=== PATIENT | female | born 1950 | race Caucasian/White ===

== ENCOUNTER 2021-03-11 09:29 | Emergency (ER) | payer MEDICARE, BC, OTHER ==
[2021-03-11] MEDS ORDERED: Promethazine HCl 25 MG/ML VIAL ONE (10:50)
[2021-03-11 11:08] LABS: #Basophils 0.1 10x3/uL (0.0-0.2); #Eosinphils 0.1 10x3/uL (0.0-0.5); #Monocytes 0.6 10x3/uL (0.0-1.1); #Neutrophils 4.7 10x3/uL (1.5-8.4); %Basophils 0.9 % (0.0-2.0); %Eosinophils 1.7 % (0.0-6.0); %Lymphocytes 19.7 % (18.0-47.0); %Monocytes 8.8 % (0.0-10.0); %Neutrophils 68.3 % (40.0-75.0); Hemoglobin 14.6 g/dL (12.0-15.5); Mean Corpuscular HGB CONC 31.4 g/dL (32.0-36.0); Mean Corpuscular Hemoglobin 29.7 pg (27.0-33.0); Mean Corpuscular Volume 94.7 fl (81.6-98.3); Mean Platelet Volume 8.9 fl (7.4-10.4); Platelet Count 292 10x3/uL (150-450); Red Blood Cell (RBC) Count 4.91 10x6/uL (3.90-5.03); White Blood Cell (WBC) Count 6.9 10x3/uL (3.5-10.5)
[2021-03-11 11:30] LABS: ALT (SGPT) 20 U/L (8-55); AST (SGOT) 19 U/L (5-34); Albumin 3.6 g/dL (3.4-4.8); Alkaline Phosphatase 49 U/L (40-110); Anion Gap 13 mmol/L (10-20); BUN (Urea Nitrogen) 24 mg/dL (9.8-20.1); Bilirubin, Total 0.4 mg/dL (0.2-1.2); CK (CPK) 71 U/L (29-168); Calc. Creatinine Clearance 0 mL/min (70-130); Calcium 8.9 mg/dL (7.8-10.44); Carbon Dioxide 26 mmol/L (23-31); Chloride 103 mmol/L (98-107); Globulin 2.8 g/dL (2.4-3.5); Glucose 88 mg/dL (80-115); Lipase 21 U/L (8-78); Magnesium 2.1 mg/dL (1.6-2.6); Potassium 4.3 mmol/L (3.5-5.1); Protein, Total 6.4 g/dL (5.8-8.1); Sodium 138 mmol/L (136-145)
== END 2021-03-11 14:49 | disposition home or self-care (01) ==
LOC: CSHERS 09:29
DX: I95.1 Orthostatic hypotension (principal); N17.9 Acute kidney failure, unspecified; E03.9 Hypothyroidism, unspecified; E78.5 Hyperlipidemia, unspecified; E78.00 Pure hypercholesterolemia, unspecified; I10 Essential (primary) hypertension; Z87.891 Personal history of nicotine dependence
CPT/HCPCS: 36415; 71045; 80053; 82550; 83690; 83735; 84443; 85025; 93005; 96365; J2550

== ENCOUNTER 2021-12-25 10:41 | Emergency (ER) | payer MEDICARE, BC, OTHER ==
[2021-12-25 11:48] LABS: #Basophils 0.1 10x3/uL (0.0-0.2); #Eosinphils 0.2 10x3/uL (0.0-0.5); #Monocytes 0.8 10x3/uL (0.0-1.1); #Neutrophils 3.9 10x3/uL (1.5-8.4); %Basophils 0.8 % (0.0-2.0); %Eosinophils 2.9 % (0.0-6.0); %Lymphocytes 26.6 % (18.0-47.0); %Monocytes 11.3 % (0.0-10.0); %Neutrophils 57.9 % (40.0-75.0); Hemoglobin 12.5 g/dL (12.0-15.5); Mean Corpuscular HGB CONC 32.8 g/dL (32.0-36.0); Mean Corpuscular Hemoglobin 29.9 pg (27.0-33.0); Mean Corpuscular Volume 91.1 fl (81.6-98.3); Mean Platelet Volume 9.1 fl (7.4-10.4); Platelet Count 280 10x3/uL (150-450); RBC Distribution Width 13.3 % (11.5-14.5); Red Blood Cell (RBC) Count 4.18 10x6/uL (3.90-5.03); White Blood Cell (WBC) Count 6.7 10x3/uL (3.5-10.5)
[2021-12-25 12:00] LABS: ALT (SGPT) 32 U/L (8-55); AST (SGOT) 19 U/L (5-34); Albumin 3.4 g/dL (3.4-4.8); Alkaline Phosphatase 36 U/L (40-110); Anion Gap 12 mmol/L (10-20); BUN (Urea Nitrogen) 29 mg/dL (9.8-20.1); Bilirubin, Total 0.3 mg/dL (0.2-1.2); Calc. Creatinine Clearance 0 mL/min (70-130); Calcium 9.2 mg/dL (7.8-10.44); Carbon Dioxide 29 mmol/L (23-31); Chloride 106 mmol/L (98-107); Estimated GFR 49; Globulin 2.1 g/dL (2.4-3.5); Glucose 85 mg/dL (80-115); Potassium 4.5 mmol/L (3.5-5.1); Protein, Total 5.5 g/dL (5.8-8.1); Sodium 142 mmol/L (136-145)
[2021-12-25 12:23] LABS: Bilirubin Neg (Negative); Blood, Urine Negative (Negative); Clarity Clear (Clear); Glucose, Urine (Dipstick) Normal (Negative); Ketone, Urine 5 mg/dL (Negative); Leukocyte Negative (Negative); Nitrite Negative (Negative); Protein, Urine (Dipstick) 15 mg/dl (Neg-Trace); Specific Gravity, Urine 1.015 (1.002-1.036); Urobilinogen Normal mg/dL (Less than 2); pH, Urine 6.5 (5.0-9.0)
[2021-12-25 12:34] LABS: CK (CPK) 109 U/L (29-168); Lipase 18 U/L (8-78)
== END 2021-12-25 13:17 | disposition home or self-care (01) ==
LOC: CSHERS 10:41
DX: E86.0 Dehydration (principal); E03.9 Hypothyroidism, unspecified; E78.00 Pure hypercholesterolemia, unspecified; I10 Essential (primary) hypertension; Z87.891 Personal history of nicotine dependence; Z20.822 Contact with and (suspected) exposure to COVID-19
CPT/HCPCS: 71045; 80053; 81003; 82550; 83690; 83880; 84484; 85025; 93005; 94760; 96360; 99285; U0003; U0005

== ENCOUNTER 2021-12-30 18:03 | Emergency (ER) | payer MEDICARE, BC, OTHER | END 2021-12-30 20:20 | disposition home or self-care (01) | LOC: CSHERS 18:03 | DX: L03.115 Cellulitis of right lower limb (principal); I80.3 Phlebitis and thrombophlebitis of lower extremities, unspecified; E03.9 Hypothyroidism, unspecified; E78.00 Pure hypercholesterolemia, unspecified; I10 Essential (primary) hypertension; Z87.891 Personal history of nicotine dependence | CPT/HCPCS: 36415; 85379 ==

== ENCOUNTER 2022-01-06 14:58 | Inpatient (IN) | payer MEDICARE, BC, OTHER ==
[2022-01-06 17:05] LABS: #Basophils 0.1 10x3/uL (0.0-0.2); #Eosinphils 0.2 10x3/uL (0.0-0.5); #Neutrophils 4.9 10x3/uL (1.5-8.4); %Basophils 0.8 % (0.0-2.0); %Eosinophils 2.7 % (0.0-6.0); %Lymphocytes 25.7 % (18.0-47.0); %Neutrophils 58.4 % (40.0-75.0); Hemoglobin 12.6 g/dL (12.0-15.5); Mean Corpuscular HGB CONC 32.2 g/dL (32.0-36.0); Mean Corpuscular Hemoglobin 29.6 pg (27.0-33.0); Mean Platelet Volume 9.5 fl (7.4-10.4); Platelet Count 273 10x3/uL (150-450); RBC Distribution Width 13.3 % (11.5-14.5); Red Blood Cell (RBC) Count 4.25 10x6/uL (3.90-5.03); White Blood Cell (WBC) Count 8.4 10x3/uL (3.5-10.5)
[2022-01-06 17:19] LABS: ALT (SGPT) 27 U/L (8-55); AST (SGOT) 23 U/L (5-34); Albumin 3.6 g/dL (3.4-4.8); Alkaline Phosphatase 41 U/L (40-110); Anion Gap 11 mmol/L (10-20); BUN (Urea Nitrogen) 18 mg/dL (9.8-20.1); Bilirubin, Total 0.3 mg/dL (0.2-1.2); Calc. Creatinine Clearance 0 mL/min (70-130); Calcium 9.2 mg/dL (7.8-10.44); Carbon Dioxide 28 mmol/L (23-31); Chloride 103 mmol/L (98-107); Estimated GFR 58; Globulin 2.7 g/dL (2.4-3.5); Glucose 77 mg/dL (80-115); Potassium 4.8 mmol/L (3.5-5.1); Protein, Total 6.3 g/dL (5.8-8.1); Sodium 137 mmol/L (136-145)
[2022-01-06] MEDS ORDERED: Cefepime 2 GM VIAL ONE (17:40)
[2022-01-06] MEDS ORDERED: Acetaminophen 500 MG TAB ONE (17:53)
[2022-01-06] MEDS ORDERED: Ondansetron ODT 4 MG TAB PO PRN (18:16)
[2022-01-06] MEDS ORDERED: Acetaminophen 325 MG TAB PO PRN (18:16)
[2022-01-06] MEDS ORDERED: Ondansetron PF 4 MG/2 ML Vial IVP PRN (18:16)
[2022-01-06] MEDS ORDERED: Famotidine 20 MG TAB PO SCH (21:00)
[2022-01-06] MEDS ORDERED: Famotidine 20 MG TAB ONE (21:07)
[2022-01-06] MEDS ORDERED: CEFAZOLIN 2 GM VIAL ONE (22:07)
[2022-01-06] MEDS: CEFAZOLIN 2 GM in Sodium Chloride 0.9% 100 ML IVPB SCH (22:10)
[2022-01-06] MEDS: traMADol HCl 50 MG TAB PO PRN (22:14)
[2022-01-06] MEDS ORDERED: traMADol HCl 50 MG TAB ONE (22:17)
[2022-01-07 03:37] LABS: #Eosinphils 0.2 10x3/uL (0.0-0.5); #Monocytes 0.8 10x3/uL (0.0-1.1); #Neutrophils 2.4 10x3/uL (1.5-8.4); %Basophils 0.8 % (0.0-2.0); %Eosinophils 3.2 % (0.0-6.0); %Lymphocytes 35.7 % (18.0-47.0); %Monocytes 14.4 % (0.0-10.0); %Neutrophils 45.5 % (40.0-75.0); Hemoglobin 10.9 g/dL (12.0-15.5); Mean Corpuscular HGB CONC 32.6 g/dL (32.0-36.0); Mean Corpuscular Hemoglobin 29.7 pg (27.0-33.0); Mean Platelet Volume 9.2 fl (7.4-10.4); Platelet Count 223 10x3/uL (150-450); RBC Distribution Width 13.2 % (11.5-14.5); Red Blood Cell (RBC) Count 3.67 10x6/uL (3.90-5.03); White Blood Cell (WBC) Count 5.3 10x3/uL (3.5-10.5)
[2022-01-07 03:53] LABS: Anion Gap 12 mmol/L (10-20); BUN (Urea Nitrogen) 18 mg/dL (9.8-20.1); Calc. Creatinine Clearance 0 mL/min (70-130); Calcium 8.1 mg/dL (7.8-10.44); Carbon Dioxide 24 mmol/L (23-31); Chloride 108 mmol/L (98-107); Estimated GFR 75; Glucose 67 mg/dL (80-115); Potassium 4.3 mmol/L (3.5-5.1); Sodium 140 mmol/L (136-145)
[2022-01-07] MEDS ORDERED: traMADol HCl 50 MG TAB ONE (05:43)
[2022-01-07] MEDS ORDERED: Ondansetron PF 4 MG/2 ML Vial ONE (05:43)
[2022-01-07] MEDS ORDERED: CEFAZOLIN 2 GM VIAL ONE (05:44)
[2022-01-07] MEDS: traMADol HCl 50 MG TAB PO PRN ×2 (05:50→21:47)
[2022-01-07] MEDS: CEFAZOLIN 2 GM in Sodium Chloride 0.9% 100 ML IVPB SCH ×3 (05:52→21:37)
[2022-01-07] MEDS ORDERED: Morphine 2 MG/ML VIAL ONE (06:45)
[2022-01-07 16:25] VITALS: BMI 26.9
[2022-01-07] MEDS ORDERED: Albuterol Sulfate 2.5 mg/3 ml Neb NEB PRN (17:13)
[2022-01-07] MEDS: Hydroxychloroquine Sulfate 200 MG TAB PO SCH (21:37)
[2022-01-08 05:27] LABS: Anion Gap 11 mmol/L (10-20); BUN (Urea Nitrogen) 17 mg/dL (9.8-20.1); Calc. Creatinine Clearance 74 mL/min (70-130); Calcium 8.2 mg/dL (7.8-10.44); Carbon Dioxide 28 mmol/L (23-31); Chloride 107 mmol/L (98-107); Estimated GFR 66; Glucose 86 mg/dL (80-115); Potassium 4.9 mmol/L (3.5-5.1); Sodium 141 mmol/L (136-145)
[2022-01-08 05:28] LABS: #Eosinphils 0.2 10x3/uL (0.0-0.5); #Monocytes 0.8 10x3/uL (0.0-1.1); #Neutrophils 3.1 10x3/uL (1.5-8.4); %Basophils 0.7 % (0.0-2.0); %Eosinophils 3.6 % (0.0-6.0); %Lymphocytes 31.4 % (18.0-47.0); %Monocytes 12.8 % (0.0-10.0); %Neutrophils 51.2 % (40.0-75.0); Hemoglobin 11.2 g/dL (12.0-15.5); Mean Corpuscular HGB CONC 32.8 g/dL (32.0-36.0); Mean Corpuscular Hemoglobin 29.8 pg (27.0-33.0); Mean Corpuscular Volume 90.7 fl (81.6-98.3); Mean Platelet Volume 9.1 fl (7.4-10.4); Platelet Count 240 10x3/uL (150-450); RBC Distribution Width 13.1 % (11.5-14.5); Red Blood Cell (RBC) Count 3.76 10x6/uL (3.90-5.03); White Blood Cell (WBC) Count 6.1 10x3/uL (3.5-10.5)
[2022-01-08] MEDS: CEFAZOLIN 2 GM in Sodium Chloride 0.9% 100 ML IVPB SCH (06:19)
[2022-01-08] MEDS ORDERED: Levothyroxine Sodium 125 MCG TAB PO SCH (07:30)
[2022-01-08] MEDS ORDERED: Estrogen,Ester/Me-Testosterone 0.625 mg/1.25 mg Tablet PO SCH (09:00)
[2022-01-08] MEDS ORDERED: Bupropion 150 MG XL TAB PO SCH (09:00)
[2022-01-08] MEDS: Hydroxychloroquine Sulfate 200 MG TAB PO SCH (09:08)
[2022-01-08] MEDS ORDERED: Mometasone/Formoterol 200/5 60 PUFF INH SCH ×2 (09:30→18:30)
[2022-01-08 09:54] VITALS: BP 107/55; TEMP 97.2
== END 2022-01-08 10:30 | disposition home or self-care (01) | DRG 294 ==
LOC: CSHERS 14:58 → SUATTDRO 14:58 → INTOOBSV 20:38 → CSHERHOLD 20:38 → CSHTELE 01-07 12:40 → OBSVTOIN 01-07 18:12
PROVIDERS: ADMIT Student in an Organized Health Care Education/Training Program; ATTEND Family Medicine
DX: I80.3 Phlebitis and thrombophlebitis of lower extremities, unspecified (principal); L03.115 Cellulitis of right lower limb; E03.9 Hypothyroidism, unspecified; I10 Essential (primary) hypertension; M06.9 Rheumatoid arthritis, unspecified; K21.9 Gastro-esophageal reflux disease without esophagitis; M54.9 Dorsalgia, unspecified; G89.29 Other chronic pain; E78.00 Pure hypercholesterolemia, unspecified; F32.A Depression, unspecified; Z98.890 Other specified postprocedural states; Z88.2 Allergy status to sulfonamides; Z88.8 Allergy status to other drugs, medicaments and biological substances; Z79.899 Other long term (current) drug therapy; Z79.51 Long term (current) use of inhaled steroids; Z79.890 Hormone replacement therapy; Z90.710 Acquired absence of both cervix and uterus; Z90.79 Acquired absence of other genital organ(s)
CPT/HCPCS: 36415; 80048; 80053; 83605; 85025; 87040; 96365; 96366; 96367; 96375; G0378; J0690; J0692; J2270; J2405; J3370; J3490

== ENCOUNTER 2023-07-14 23:45 | Emergency (ER) | payer MEDICARE, OTHER ==
[2023-07-15] MEDS ORDERED: Ketorolac Tromethamine 30 MG (1 mL) VIAL ONE (00:22)
[2023-07-15] MEDS ORDERED: Ondansetron ODT 4 MG TAB ONE (00:22)
[2023-07-15] MEDS ORDERED: Orphenadrine Citrate 60 MG/2 ML VIAL ONE (00:22)
[2023-07-15] MEDS ORDERED: Dexamethasone 4 MG TAB ONE (00:22)
[2023-07-15 01:44] LABS: Bilirubin Neg (Negative); Blood, Urine Negative (Negative); Clarity Slightly Cloudy (Clear); Glucose, Urine (Dipstick) Normal (Negative); Ketone, Urine 15 mg/dL (Negative); Leukocyte Negative (Negative); Nitrite Negative (Negative); Protein, Urine (Dipstick) 15 mg/dl (Neg-Trace); Specific Gravity, Urine 1.025 (1.005-1.030); Urobilinogen Normal mg/dL (Less than 2)
[2023-07-15 01:53] LABS: Bacteria/HPF 1+ HPF (None Seen); CAUTI Indications for Culture Pelvic or flank pain; RBC/HPF 0-3 HPF (0-3); WBC/HPF 0-3 HPF (0-3); Yeast-Budding Rare HPF (None Seen)
[2023-07-15 01:55] LABS: Urine Culture Reflex No No
== END 2023-07-15 02:29 | disposition home or self-care (01) ==
LOC: CSHERS 23:45
DX: M53.3 Sacrococcygeal disorders, not elsewhere classified (principal)
CPT/HCPCS: 81001; 96372; 99283; J1885; J2360; J8540; Q0162

== ENCOUNTER 2023-10-28 15:04 | Emergency (ER) | payer MEDICARE, OTHER ==
[~2023-10-28 15:04] MED LIST: Iopamidol 300 61% 100 ML VIAL FS ONE
[2023-10-28 16:13] LABS: #Basophils 0.03 10x3/uL (0.0-0.2); #Monocytes 0.35 10x3/uL (0.0-1.1); #Neutrophils 4.65 10x3/uL (1.5-8.4); %Basophils 0.5 % (0.0-2.0); %Eosinophils 1.6 % (0.0-6.0); %Lymphocytes 15.8 % (18.0-47.0); %Monocytes 5.7 % (0.0-10.0); %Neutrophils 76.1 % (40.0-75.0); Hemoglobin 11.2 g/dL (12.0-15.5); Mean Corpuscular Hemoglobin 26.5 pg (27.0-33.0); Mean Corpuscular Volume 82.9 fL (81.6-98.3); Mean Platelet Volume 9.3 fL (7.4-10.4); Platelet Count 373 10x3/uL (150-450); RBC Distribution Width 14.9 % (11.5-14.5); Red Blood Cell (RBC) Count 4.22 10x6/uL (3.90-5.03); White Blood Cell (WBC) Count 6.1 10x3/uL (3.5-10.5)
[2023-10-28 16:34] LABS: ALT (SGPT) 15 U/L (8-55); AST (SGOT) 14 U/L (5-34); Albumin 3.3 g/dL (3.4-4.8); Alkaline Phosphatase 51 U/L (40-110); Anion Gap 11 mmol/L (10-20); BUN (Urea Nitrogen) 19 mg/dL (9.8-20.1); Bilirubin, Total 0.2 mg/dL (0.2-1.2); Calc. Creatinine Clearance 0 mL/min (70-130); Calcium 9.1 mg/dL (7.8-10.44); Carbon Dioxide 28 mmol/L (23-31); Chloride 104 mmol/L (98-107); Estimated GFR 56; Globulin 2.5 g/dL (2.4-3.5); Glucose 105 mg/dL (83-110); Lipase 13 U/L (8-78); Potassium 4.7 mmol/L (3.5-5.1); Protein, Total 5.8 g/dL (5.8-8.1); Sodium 138 mmol/L (136-145)
[2023-10-28 16:40] LABS: Troponin I Less than 0.010 ng/mL (< 0.028)
[2023-10-28] MEDS ORDERED: Ondansetron PF 4 MG/2 ML Vial ONE (18:12)
[2023-10-28 18:34] LABS: Bilirubin Neg (Negative); Blood, Urine Negative (Negative); Clarity Clear (Clear); Glucose, Urine (Dipstick) Normal (Negative); Ketone, Urine Negative (Negative); Leukocyte Negative (Negative); Nitrite Negative (Negative); Protein, Urine (Dipstick) Negative (Neg-Trace); Urobilinogen Normal mg/dL (Less than 2); pH, Urine 6.5 (5.0-9.0)
[2023-10-28 18:47] LABS: Bacteria/HPF Rare-Few HPF (None Seen); CAUTI Indications for Culture Pelvic or flank pain; RBC/HPF None Seen HPF (0-3); Squamous Epithelial 0-3 HPF (0-3); Urine Culture Reflex No No; WBC/HPF 0-3 HPF (0-3)
== END 2023-10-28 19:20 | disposition home or self-care (01) ==
LOC: CSHERS 15:04
DX: K59.00 Constipation, unspecified (principal); K44.9 Diaphragmatic hernia without obstruction or gangrene; I10 Essential (primary) hypertension; E03.9 Hypothyroidism, unspecified; Z87.891 Personal history of nicotine dependence; Z79.899 Other long term (current) drug therapy
CPT/HCPCS: 71045; 74177; 80053; 81001; 83605; 83690; 84484; 85025; 93005; J2405; Q9967; 96374

== ENCOUNTER 2023-11-09 11:37 | Observation (INO) | payer MEDICARE, OTHER ==
[2023-11-09] MEDS ORDERED: Ondansetron PF 4 MG/2 ML Vial ONE ×2 (12:29→18:04)
[2023-11-09 12:35] LABS: #Basophils 0.03 10x3/uL (0.0-0.2); #Eosinphils 0.14 10x3/uL (0.0-0.5); #Monocytes 0.52 10x3/uL (0.0-1.1); #Neutrophils 3.67 10x3/uL (1.5-8.4); %Basophils 0.6 % (0.0-2.0); %Eosinophils 2.7 % (0.0-6.0); %Lymphocytes 15.8 % (18.0-47.0); %Neutrophils 70.5 % (40.0-75.0); Hematocrit 34.6 % (34.9-44.5); Hemoglobin 10.7 g/dL (12.0-15.5); Mean Corpuscular HGB CONC 30.9 g/dL (32.0-36.0); Mean Corpuscular Hemoglobin 25.5 pg (27.0-33.0); Mean Corpuscular Volume 82.6 fL (81.6-98.3); Mean Platelet Volume 9.1 fL (7.4-10.4); Platelet Count 377 10x3/uL (150-450); RBC Distribution Width 15.3 % (11.5-14.5); Red Blood Cell (RBC) Count 4.19 10x6/uL (3.90-5.03); White Blood Cell (WBC) Count 5.2 10x3/uL (3.5-10.5)
[2023-11-09] MEDS ORDERED: Piperacillin/Tazobactam 4.5 GM VIAL ONE (12:40)
[2023-11-09 12:46] LABS: Lipase 24 U/L (8-78); Magnesium 2.1 mg/dL (1.6-2.6)
[2023-11-09 12:53] LABS: Troponin I Less than 0.010 ng/mL (< 0.028)
[2023-11-09] MEDS ORDERED: Ketorolac Tromethamine 30 MG (1 mL) VIAL ONE (13:35)
[2023-11-09 15:17] LABS: Lactic Acid 0.7 mmol/L (0.5-2.2)
[2023-11-09] MEDS ORDERED: Meropenem 1 GM VIAL ONE (16:32)
[2023-11-09 16:49] LABS: ALT (SGPT) 17 U/L (8-55); AST (SGOT) 15 U/L (5-34); Albumin 2.6 g/dL (3.4-4.8); Alkaline Phosphatase 43 U/L (40-110); Anion Gap 7 mmol/L (10-20); BUN (Urea Nitrogen) 22 mg/dL (9.8-20.1); Bilirubin, Total 0.2 mg/dL (0.2-1.2); Calc. Creatinine Clearance 0 mL/min (70-130); Calcium 8.8 mg/dL (7.8-10.44); Carbon Dioxide 30 mmol/L (23-31); Chloride 108 mmol/L (98-107); Estimated GFR 74; Globulin 2.5 g/dL (2.4-3.5); Glucose 89 mg/dL (83-110); Potassium 4.4 mmol/L (3.5-5.1); Protein, Total 5.1 g/dL (5.8-8.1); Sodium 141 mmol/L (136-145)
[2023-11-09] MEDS ORDERED: hydrOXYzine 25 MG TAB ONE (18:04)
== END 2023-11-09 22:00 | disposition short-term general hospital (02) ==
LOC: CSHERS 11:37 → CSHERHOLD 14:33
PROVIDERS: ADMIT Hospitalist; ATTEND Hospitalist
DX: K91.89 Other postprocedural complications and disorders of digestive system (principal); J32.9 Chronic sinusitis, unspecified; M06.9 Rheumatoid arthritis, unspecified; Z79.899 Other long term (current) drug therapy; I10 Essential (primary) hypertension; E03.9 Hypothyroidism, unspecified; F32.A Depression, unspecified; Z98.890 Other specified postprocedural states; K44.9 Diaphragmatic hernia without obstruction or gangrene; R13.10 Dysphagia, unspecified
CPT/HCPCS: 36415; 70450; 71045; 80053; 83605; 83690; 83735; 83880; 84484; 85025; 87040; 93005; 96365; 96366; 96368; 96375; 96376; J1885; J2185; J2405; J2543

== ENCOUNTER 2024-04-30 08:35 | Outpatient (CLI) | payer MEDICARE, OTHER ==
[2024-04-30] MEDS ORDERED: Iopamidol 300 61% 100 ML VIAL FS ONE (11:27)
== END 2024-04-30 08:36 | disposition home or self-care (01) ==
LOC: CSHCT 08:35
PROVIDERS: ATTEND Internal Medicine Gastroenterology
DX: R10.9 Unspecified abdominal pain (principal); K59.00 Constipation, unspecified; R13.10 Dysphagia, unspecified
CPT/HCPCS: 36415; 74177; 82565

== ENCOUNTER 2025-01-07 08:02 | Emergency (ER) | payer MEDICARE, OTHER ==
[2025-01-07 08:49] LABS: #Basophils 0.04 10x3/uL (0.0-0.2); #Eosinophils 0.14 10x3/uL (0.0-0.5); #Monocytes 1.20 10x3/uL (0.0-1.1); #Neutrophils 8.42 10x3/uL (1.5-8.4); %Basophils 0.4 % (0.0-2.0); %Eosinophils 1.2 % (0.0-6.0); %Lymphocytes 12.1 % (18.0-47.0); %Monocytes 10.7 % (0.0-10.0); %Neutrophils 74.7 % (40.0-75.0); Hematocrit 41.6 % (34.9-44.5); Hemoglobin 13.1 g/dL (12.0-15.5); Mean Corpuscular Hemoglobin 29.8 pg (27.0-33.0); Mean Corpuscular Volume 94.5 fL (81.6-98.3); Platelet Count 341 10x3/uL (150-450); Red Blood Cell (RBC) Count 4.40 10x6/uL (3.90-5.03); White Blood Cell (WBC) Count 11.26 10x3/uL (3.5-10.5)
[2025-01-07 09:07] LABS: ALT (SGPT) 30 U/L (Less than 34); AST (SGOT) 22 U/L (11-34); Albumin 3.0 g/dL (3.1-4.5); Alkaline Phosphatase 53 U/L (40-110); Anion Gap 11 mmol/L (10-20); BUN (Urea Nitrogen) 25 mg/dL (9.8-20.1); Bilirubin, Total 0.3 mg/dL (0.3-1.2); Calc. Creatinine Clearance 0 mL/min (70-130); Calcium 8.8 mg/dL (7.8-10.44); Carbon Dioxide 30 mmol/L (23-31); Chloride 103 mmol/L (98-107); Globulin 2.8 g/dL (2.4-3.5); Glucose 103 mg/dL (83-110); Potassium 3.9 mmol/L (3.5-5.1); Sodium 140 mmol/L (136-145)
== END 2025-01-07 10:54 | disposition short-term general hospital (02) ==
LOC: CSHERS 08:02
DX: S72.001A Fracture of unspecified part of neck of right femur, initial encounter for closed fracture (principal); I10 Essential (primary) hypertension; Z87.891 Personal history of nicotine dependence; W01.0XXA Fall on same level from slipping, tripping and stumbling without subsequent striking against object, initial encounter; Y92.89 Other specified places as the place of occurrence of the external cause
CPT/HCPCS: 73502; 73564; 80053; 85025; 86850; 86900; 86901; 93005; J2270; 36415; 96374

== ENCOUNTER 2025-01-27 18:05 | Emergency (ER) | payer MEDICARE, OTHER ==
[2025-01-27 19:35] LABS: #Basophils 0.04 10x3/uL (0.0-0.2); #Eosinophils 0.10 10x3/uL (0.0-0.5); #Monocytes 0.87 10x3/uL (0.0-1.1); #Neutrophils 4.17 10x3/uL (1.5-8.4); %Basophils 0.6 % (0.0-2.0); %Eosinophils 1.5 % (0.0-6.0); %Lymphocytes 23.0 % (18.0-47.0); %Monocytes 12.9 % (0.0-10.0); %Neutrophils 61.6 % (40.0-75.0); Hematocrit 36.5 % (34.9-44.5); Hemoglobin 11.9 g/dL (12.0-15.5); Mean Corpuscular Hemoglobin 30.5 pg (27.0-33.0); Mean Corpuscular Volume 93.6 fL (81.6-98.3); Platelet Count 460 10x3/uL (150-450); Red Blood Cell (RBC) Count 3.90 10x6/uL (3.90-5.03); White Blood Cell (WBC) Count 6.77 10x3/uL (3.5-10.5)
[2025-01-27] MEDS ORDERED: Ondansetron PF 4 MG/2 ML Vial ONE (19:41)
[2025-01-27 19:54] LABS: ALT (SGPT) 31 U/L (Less than 34); AST (SGOT) 25 U/L (11-34); Albumin 2.6 g/dL (3.1-4.5); Alkaline Phosphatase 71 U/L (40-110); Anion Gap 12 mmol/L (10-20); BUN (Urea Nitrogen) 19 mg/dL (9.8-20.1); Bilirubin, Total 0.1 mg/dL (0.3-1.2); Calc. Creatinine Clearance 0 mL/min (70-130); Calcium 8.8 mg/dL (7.8-10.44); Carbon Dioxide 29 mmol/L (23-31); Chloride 101 mmol/L (98-107); Globulin 3.0 g/dL (2.4-3.5); Glucose 99 mg/dL (83-110); Potassium 3.5 mmol/L (3.5-5.1); Sodium 138 mmol/L (136-145)
[2025-01-27 21:35] LABS: Glucose, Urine (Dipstick) Normal (Negative); Leukocyte Negative (Negative); Protein, Urine (Dipstick) Negative (Neg-Trace); Specific Gravity, Urine 1.005 (1.005-1.030)
[2025-01-27 21:45] LABS: Bacteria/HPF Rare-Few HPF (None Seen); CAUTI Indications for Culture Pelvic or flank pain; RBC/HPF None Seen HPF (0-3); WBC/HPF None Seen HPF (0-3)
[2025-01-27 21:46] LABS: Urine Culture Reflex No No
== END 2025-01-27 22:42 | disposition home or self-care (01) ==
LOC: CSHERS 18:05
DX: N39.0 Urinary tract infection, site not specified (principal); I10 Essential (primary) hypertension; Z87.891 Personal history of nicotine dependence
CPT/HCPCS: 36415; 80053; 81001; 83605; 85025; 87040; 93005; 96374